=== PATIENT | female | born 1950 | race American Indian/Alaskan Native ===

== ENCOUNTER 2020-08-31 10:14 | Outpatient (CLI) | payer MEDICARE ==
--- NOTE | 2020-08-31 11:54 | Mammography Report ---
DIGITAL SCREENING MAMMOGRAM WITH CAD, 08/31/2020 CLINICAL INFORMATION / INDICATION: Routine screening mammography. SCREENING MAMMOGRAM TECHNIQUE: Digital bilateral 2D mammography was obtained in the craniocaudal and mediolateral obliqu e projections. This examination was interpreted with the benefit of Computer-Aided Detection analysis . COMPARISON: 08/30/2018 and 08/30/2019 FINDINGS: Breast Density: There are scattered areas of fibroglandular density. No dominant mass, suspicious calcifications, or architectural distortion in either breast. There are stable bilateral calcifications. There is stable nodularity in the 12:00 position of the le ft breast. IMPRESSION: No mammographic evidence of malignancy. Follow up recommendation: Routine yearly BI-RADS Category 2: Benign. A "normal" or negative report should not discourage follow up or biopsy of a clinically significant f inding. A written summary of these findings will be mailed to the patient. The patient will be entered into a mammography reporting system which will generate a reminder letter for the patient's next appointmen t at the appropriate interval. The [employer] recommends yearly mammograms starting at age 40 and continuing as l albaro as a woman is in good health. Breast MRI is recommended for women with an approximate 20-25% or greater lifetime risk of breast cancer, including women with a strong family history of breast or ova renzo cancer or who have been treated for Hodgkin's disease. Signer Name: José Miguel Case MD Signed: 08/31/2020 11:49 AM Workstation Name: [employer]
== END 2020-08-31 10:15 | disposition home or self-care (01) ==
LOC: SPVWC 10:14
PROVIDERS: ATTEND Surgery
DX: Z12.31 Encounter for screening mammogram for malignant neoplasm of breast (principal)
CPT/HCPCS: 77063; 77067

== ENCOUNTER 2021-09-01 11:25 | Outpatient (CLI) | payer MEDICARE, BC ==
--- NOTE | 2021-09-02 11:21 | Mammography Report ---
DIGITAL SCREENING MAMMOGRAM WITH CAD, 09/01/2021 CLINICAL INFORMATION / INDICATION: Routine screening mammography. SCREENING MAMMO Z12.31 TECHNIQUE: Digital bilateral 2D mammography was obtained in the craniocaudal and mediolateral obliqu e projections. This examination was interpreted with the benefit of Computer-Aided Detection analysis . COMPARISON: 08/30/2017 through 08/31/2020. FINDINGS: Breast Density: There are scattered areas of fibroglandular density. No dominant mass, suspicious calcifications, or architectural distortion in the left breast. Benign-a ppearing nodularity/asymmetric breast tissue in the left superior breast is stable. There are benign scattered calcifications bilaterally. There is an area of loosely grouped calcificat ions in the right upper outer quadrant in the middle depth, increasing in number over serial exams. IMPRESSION: Grouped calcifications in the right upper outer quadrant. Magnification views are recomme nded for further characterization. Follow up recommendation: Special View: Mag BI-RADS Category 0: INCOMPLETE. Needs additional imaging evaluation and/or prior mammograms for mary rison. A "normal" or negative report should not discourage follow up or biopsy of a clinically significant f inding. A written summary of these findings will be mailed to the patient. The patient will be entered into a mammography reporting system which will generate a reminder letter for the patient's next appointmen t at the appropriate interval. The [employer] recommends yearly mammograms starting at age 40 and continuing as l albaro as a woman is in good health. Breast MRI is recommended for women with an approximate 20-25% or greater lifetime risk of breast cancer, including women with a strong family history of breast or ova renzo cancer or who have been treated for Hodgkin's disease. Signer Name: Jose Molina MD Signed: 09/02/2021 11:17 AM Workstation Name: [email or web address]
== END 2021-09-01 11:26 | disposition home or self-care (01) ==
LOC: SPVWC 11:25
PROVIDERS: ATTEND Surgery
DX: Z12.31 Encounter for screening mammogram for malignant neoplasm of breast (principal); N64.89 Other specified disorders of breast
CPT/HCPCS: 77067

== ENCOUNTER 2021-09-21 13:20 | Outpatient (CLI) | payer MEDICARE, BC ==
--- NOTE | 2021-09-21 14:25 | Mammography Report ---
DIGITAL DIAGNOSTIC MAMMOGRAM WITH CAD CONVENTIONAL, 09/21/2021 CLINICAL INFORMATION / INDICATION: Patient presents as a callback from screening mammogram for furthe r evaluation of grouped calcifications in the right breast. ABNORMAL AND INCONCLUSIVE FINDINGS ON FLORECITA G IMAGING OF BREAST TECHNIQUE: Digital right mammographic imaging was performed. Magnification views were obtained. This examination was interpreted with the benefit of Computer-aided Detection analysis. COMPARISON: Prior mammogram 09/01/2021 FINDINGS: Breast Density: There are scattered areas of fibroglandular density. As seen on recent screening mammogram, there is a 1.4 cm group of punctate and round calcifications s een in the upper outer quadrant of the right breast approximately 7 cm from the nipple. There are add itional stable scattered benign-appearing calcifications seen in the right breast. IMPRESSION: 1. A small group of calcifications in the right breast is considered suspicious for malignancy, stere otactic biopsy is recommended. Follow up recommendation: Biopsy BI-RADS Category 4: SUSPICIOUS FOR MALIGNANCY. A "normal" or negative report should not discourage follow up or biopsy of a clinically significant f inding. A written summary of these findings will be mailed to the patient. The patient will be entered into a mammography reporting system which will generate a reminder letter for the patient's next appointmen t at the appropriate interval. According to the [employer], yearly mammograms are recommended starting at age 40 and continuing as long as a woman is in good health. Breast MRI is recommended for women with an zoraida roximately 20-25% or greater lifetime risk of breast cancer, including women with a strong family his tory of breast or ovarian cancer and women who have been treated for Hodgkin's disease. Signer Name: Jailyn Garcia MD Signed: 09/21/2021 2:20 PM Workstation Name: [employer]
== END 2021-09-21 13:21 | disposition home or self-care (01) ==
LOC: SPVWC 13:20
PROVIDERS: ATTEND Surgery
DX: R92.1 Mammographic calcification found on diagnostic imaging of breast (principal)